=== PATIENT | female | born 1945 | race Caucasian/White ===

== ENCOUNTER 2021-05-09 21:04 | Emergency (ER) | payer MEDICARE, BC ==
[~2021-05-09] VITALS: Ht 165.1 cm; Wt 73.0 kg
[2021-05-09 22:05] VITALS: BP 139/77
[2021-05-09] MEDS ORDERED: DIPH,PERTUSS(ACELL),TET VAC/PF 0.5 ML SYRINGE. VAX IM ONE (22:15)
--- NOTE | 2021-05-09 22:53 | PHYS DOC ---
Past Medical History Past Surgical History: Hysterectomy Smoking Status: Never Smoker Alcohol Use: None General Adult EDM: Chief Complaint: LACERATION/AVULSION HPI: HPI: Patient is a 76 year old female who presents to the ED today to be evaluated for scalp laceration. Patient states she was walking she lost her footing and hit her head on a TV glass door which broke. Patient denies any loss of consciousness. She states she takes a baby aspirin every day. Denies any neck pain, denies any mid or low back pain. Review of Systems: Review of Systems: Constitutional: Denies fever or chills. [] Eyes: Denies change in visual acuity. [] HENT: Denies nasal congestion or sore throat. [] Respiratory: Denies cough or shortness of breath. [] Cardiovascular: Denies chest pain or edema. [] GI: Denies abdominal pain, nausea, vomiting, bloody stools or diarrhea. [] : Denies dysuria. [] Musculoskeletal: Denies back pain or joint pain. [] Integument: Reports scalp laceration Neurologic: Denies headache, focal weakness or sensory changes. [] [] Psychiatric: Denies depression or anxiety. [] Heart Score: C/O Chest Pain: N/A Risk Factors: Risk Factors: DM, Current or recent (<one month) smoker, HTN, HLP, family history of CAD, obesity. Risk Scores: Score 0 - 3: 2.5% MACE over next 6 weeks - Discharge Home Score 4 - 6: 20.3% MACE over next 6 weeks - Admit for Clinical Observation Score 7 - 10: 72.7% MACE over next 6 weeks - Early Invasive Strategies Current Medications: Current Medications Medications (Trade) Dose Ordered Sig/Cristhian Start Time Stop Time Status Last Admin Dose Admin Diphtheria/ Tetanus/Acell Pertussis (ADACEL TDap SYRINGE) 0.5 ml ONCE ONCE 05/09/21 22:15 05/09/21 22:16 DC 05/09/21 22:25 0.5 ML Allergies: Allergies: Allergies Coded Allergies Type Severity Reaction Last Updated Verified No Known Drug Allergies 05/09/21 No Physical Exam: PE: Constitutional: Well developed, well nourished, no acute distress, non-toxic appearance. [] HENT: Normocephalic, atraumatic, bilateral external ears normal, oropharynx moist, no oral exudates, nose normal. [] Eyes: PERRLA, EOMI, conjunctiva normal, no discharge. [] Neck: Normal range of motion, no tenderness, supple, no stridor. [] Cardiovascular:Heart rate regular rhythm, no murmur [] Lungs & Thorax: Bilateral breath sounds clear to auscultation [] Abdomen: Bowel sounds normal, soft, no tenderness, no masses, no pulsatile masses. [] Skin: Right parietal scalp with a hematoma and a laceration approximately 1.5 cm long. Bleeding is controlled. Back: No tenderness, no CVA tenderness. [] Extremities: No tenderness, no cyanosis, no clubbing, ROM intact, no edema. [] Neurologic: Alert and oriented X 3, normal motor function, normal sensory function, no focal deficits noted. Cranial nerves II through XII intact Psychologic: Affect normal, judgement normal, mood normal. [] Current Patient Data: Vital Signs: Vital Signs Date Time Temp Pulse Resp B/P (MAP) Pulse Ox O2 Delivery O2 Flow Rate FiO2 05/09/21 22:05 98.1 74 16 139/77 98 Room Air 98.1 EKG: EKG: [] Radiology/Procedures: Radiology/Procedures: Laceration/Wound Repair Wound Location: Right parietal scalp Wound's Depth, Shape: Vertical Wound Length (cm): Approximately 1.5 cm Wound Explored: clean Irrigated w/ Saline (ccs): 10 Wound Repaired With: 3 edith PROCEDURE: CT HEAD WO CONTRAST Exam: CT head INDICATION: Hit glass door, head laceration TECHNIQUE: Sequential axial images through the head were obtained without the administration of IV contrast. Exposure: One or more of the following in the visualized dose reduction techniques were utilized for this examination: 1. Automated exposure control 2. Adjustment of the MA and/or KV according to patient size 3. Use of iterative of reconstructive technique Comparisons: None FINDINGS: No focal parenchymal lesion or hemorrhage is identified. There is no midline shift or sulcal effacement. Patchy evidence in periventricular white matter. No acute vascular territory infarction is identified. Lemon-white distinction is preserved. The ventricular system is within normal limits without compression hydrocephalus. The basal cisterns are well maintained. Extra cranial soft tissue scalp contusion overlying the left posterior parietal region, and the right frontal region. The visualized portions of the paranasal sinuses and mastoid air cells are well-pneumatized. No acute fractures. IMPRESSION: Extra renal soft tissue scalp contusion/hematoma in the right frontal region in the left occipital region without underlying osseous or intracranial abnormality. Electronically signed by: Fabiana Almonte MD (05/09/2021 10:53 PM) [facility] DICTATED and SIGNED BY: FABIANA ALMONTE MD DATE: 05/09/21 [id number] 0 Course & Med Decision Making: Course & Med Decision Making Pertinent Labs and Imaging studies reviewed. (See chart for details) This is a 76-year-old female patient presenting to the ED today with scalp laceration after falling. No loss of consciousness. Laceration was repaired by me as noted in procedures. Tetanus was updated. Wound care instructions and return precautions provided. CT of the head noted for scalp hematoma otherwise no acute findings. Dragon Disclaimer: Dragon Disclaimer: This electronic medical record was generated, in whole or in part, using a voice recognition dictation system. Departure Departure Impression: Primary Impression: Scalp laceration Qualified Codes: S01.01XA - Laceration without foreign body of scalp, initial encounter Additional Impression: Fall from standing Qualified Codes: W19.XXXA - Unspecified fall, initial encounter Disposition: HOME / SELF CARE / HOMELESS Condition: STABLE Referrals: ALINA BURGER MD (PCP) Follow-up in 7 to 10 days for edith to be removed Patient Instructions: Facial or Scalp Contusion, Laceration Care, Adult Additional Instructions: You were evaluated in the emergency room for scalp laceration that was closed with 3 edith. You can shower and wash your head once a day. Please follow-up with your primary care doctor or the emergency room in 7 to 10 days for edith to be removed. KAREN AUSTIN SANITOR May 09, 2021 22:53
--- NOTE | 2021-05-09 22:55 | RAD ---
Exam: CT head INDICATION: Hit glass door, head laceration TECHNIQUE: Sequential axial images through the head were obtained without the administration of IV co ntrast. Exposure: One or more of the following in the visualized dose reduction techniques were utilized for this examination: 1. Automated exposure control 2. Adjustment of the MA and/or KV according to patient size 3. Use of iterative of reconstructive technique Comparisons: None FINDINGS: No focal parenchymal lesion or hemorrhage is identified. There is no midline shift or sulcal effaceme nt. Patchy evidence in periventricular white matter. No acute vascular territory infarction is identified . Lemon-white distinction is preserved. The ventricular system is within normal limits without compression hydrocephalus. The basal cisterns are well maintained. Extra cranial soft tissue scalp contusion overlying the left posterior parietal region, and the right frontal region. The visualized portions of the paranasal sinuses and mastoid air cells are well-pneu matized. No acute fractures. IMPRESSION: Extra renal soft tissue scalp contusion/hematoma in the right frontal region in the left occipital re gion without underlying osseous or intracranial abnormality. Electronically signed by: Fabiana Page MD (05/09/2021 10:53 PM) [facility]
== END 2021-05-09 23:06 | disposition home or self-care (01) ==
LOC: ER 21:04
DX: S01.01XA Laceration without foreign body of scalp, initial encounter (principal); W22.8XXA Striking against or struck by other objects, initial encounter; Y93.01 Activity, walking, marching and hiking; Y92.89 Other specified places as the place of occurrence of the external cause; Y99.8 Other external cause status
CPT/HCPCS: 70450; 90471; 90715; 99284-25

== ENCOUNTER 2021-05-17 13:51 | Emergency (ER) | payer MEDICARE, BC ==
[~2021-05-17] VITALS: Ht 157.5 cm; Wt 43.3 kg
--- NOTE | 2021-05-17 14:44 | PHYS DOC ---
Past Medical History Past Medical History: Diabetes-Type II, Hypertension Past Surgical History: Hysterectomy Smoking Status: Never Smoker Alcohol Use: None Drug Use: None General Adult EDM: Chief Complaint: SUTURE/STAPLE REMOVAL HPI: HPI: Patient is a 76-year-old female presents with report of history of fall 8 days ago striking the top of her head requiring staple repair of scalp. Patient reports she has 3 tobi that need to be removed. Denies any further headache. Denies other complaint. Review of Systems: Review of Systems: Constitutional: Denies fever or chills Eyes: Denies redness or eye pain HENT: Denies nasal congestion or sore throat Respiratory: Denies cough or shortness of breath Cardiovascular: Denies chest pain or palpitations GI: Denies abdominal pain, nausea, or vomiting : Denies dysuria or hematuria Musculoskeletal: Denies back pain or joint pain Integument: Denies erythema; reports scalp laceration status post staple repair from 05/09/2021 Neurologic: Denies headache, focal weakness or sensory changes Complete systems were reviewed and found to be within normal limits, except as documented in this note. Heart Score: C/O Chest Pain: N/A Allergies: Allergies: Allergies Coded Allergies Type Severity Reaction Last Updated Verified No Known Drug Allergies 05/09/21 No Physical Exam: PE: Constitutional: Well developed, well nourished, no acute distress, non-toxic appearance HENT: Normocephalic, 3 tobi noted to crown of scalp, some small eschar noted, laceration appears to be well-healing, no surrounding erythema, no exudate Eyes: Conjunctiva normal, no discharge Neck: Normal range of motion, supple Lungs & Thorax: No respiratory distress, equal chest rise and fall Skin: Warm, dry, no erythema, no rash, healed scalp laceration as above Extremities: No deformity, ROM intact Neurologic: Alert and oriented X 3, no focal deficits noted Psychologic: Affect normal, judgment normal EKG: EKG: [] Radiology/Procedures: Radiology/Procedures: [] Course & Med Decision Making: Course & Med Decision Making Patient status post head trauma with repaired scalp laceration presents for staple removal. Wound appears to be well-healing and without signs of infection. Tobi successfully removed. Patient stable for discharge with outpatient follow-up with PCP. Discussed findings and plan with patient, who acknowledges understanding and agreement. Dragon Disclaimer: Radha Disclaimer: This electronic medical record was generated, in whole or in part, using a voice recognition dictation system. Additional Procedures Progress Staple removal Verbal consent obtained. Time out performed. Hand hygiene utilized. 3 tobi successfully removed from scalp using staple removal tool. Patient tolerated procedure well and without difficulty. Departure Departure Impression: Primary Impression: Encounter for staple removal Disposition: HOME / SELF CARE / HOMELESS Condition: STABLE Referrals: ALINA BURGER MD (PCP) Patient Instructions: Staple Removal, Care After ANTON CHAWLA DO May 17, 2021 14:44
[2021-05-17 14:50] VITALS: BP 140/73
== END 2021-05-17 14:55 | disposition home or self-care (01) ==
LOC: ER 13:51
DX: S01.01XD Laceration without foreign body of scalp, subsequent encounter (principal); E11.9 Type 2 diabetes mellitus without complications; I10 Essential (primary) hypertension; X58.XXXD Exposure to other specified factors, subsequent encounter
CPT/HCPCS: 99281

== ENCOUNTER 2021-10-01 10:04 | Emergency (ER) | payer MEDICARE, BC ==
[~2021-10-01] VITALS: Ht 160 cm; Wt 76.9 kg
[2021-10-01] MEDS ORDERED: OXYMETAZOLINE 0.05% NASAL SPRAY 30ML BOTTLE. NS ONE (10:30)
--- NOTE | 2021-10-01 10:33 | PHYS DOC ---
Past Medical History Past Medical History: Diabetes-Type II, Hypertension Past Surgical History: Hysterectomy Smoking Status: Never Smoker Alcohol Use: None Drug Use: None General Adult EDM: Chief Complaint: NOSEBLEED HPI: HPI: Patient is a 76-year-old female who presents to the emergency department for a nosebleed that started yesterday afternoon. Patient reports that the pain bleeding started after she picked her nose and it has been intermittent. Patient has no complaints other than the nosebleed. She is not on any blood thinners. Review of Systems: Review of Systems: Constitutional: negative unless reported in HPI Eyes: negative unless reported in HPI HENT: negative unless reported in HPI Respiratory: negative unless reported in HPI Cardiovascular: negative unless reported in HPI GI: negative unless reported in HPI : negative unless reported in HPI Musculoskeletal: negative unless reported in HPI Integument: negative unless reported in HPI Neurologic: negative unless reported in HPI Endocrine: negative unless reported in HPI Lymphatic: negative unless reported in HPI Psychiatric: negative unless reported in HPI Heart Score: C/O Chest Pain: N/A Risk Factors: Risk Factors: DM, Current or recent (<one month) smoker, HTN, HLP, family history of CAD, obesity. Risk Scores: Score 0 - 3: 2.5% MACE over next 6 weeks - Discharge Home Score 4 - 6: 20.3% MACE over next 6 weeks - Admit for Clinical Observation Score 7 - 10: 72.7% MACE over next 6 weeks - Early Invasive Strategies Allergies: Allergies: Allergies Coded Allergies Type Severity Reaction Last Updated Verified No Known Drug Allergies 05/09/21 No Physical Exam: PE: Constitutional: Well developed, well nourished, no acute distress, non-toxic appearance. [] HENT: Normocephalic, atraumatic, bilateral external ears normal, oropharynx moist, no oral exudates, active bleeding noted from right nare Eyes: PERRL, EOMI, conjunctiva normal, no discharge. [] Neck: Normal range of motion, no tenderness, supple, no stridor. [] Cardiovascular:Heart rate regular rhythm, no murmur [] Lungs & Thorax: Bilateral breath sounds clear to auscultation [] Abdomen: Bowel sounds normal, soft, no tenderness, no masses, no pulsatile masses. [] Skin: Warm, dry, no erythema, no rash. [] Back: Normal range of motion Extremities: No tenderness, no cyanosis, no clubbing, ROM intact, no edema. [] Neurologic: Alert and oriented X 3, normal motor function, normal sensory function, no focal deficits noted. [] Psychologic: Affect normal, judgement normal, mood normal. [] EKG: EKG: [] Radiology/Procedures: Radiology/Procedures: [] Course & Med Decision Making: Course & Med Decision Making Pertinent Labs and Imaging studies reviewed. (See chart for details) [] Patient presents to the emergency department for a nosebleed. Pressure was applied. The bleeding is continued in the right nare. Afrin ordered and pressure applied. Following procedure, bleeding is controlled. Patient states that she does not feel any posterior bleeding down the back of her throat.Patient ambulated and the bleeding did not restart. Patient discharged with afrin. Educated on how to care for nosebleeds in future. I discussed with patient all findings as well as the need to follow-up with PCP for further evaluation and treatment or return to the ER if any new or worsening symptoms. Strict return precautions were also discussed at length. Patient voiced understanding and agreement with the plan. Patient is hemodynamically stable at the time of disposition. Dragon Disclaimer: Fast Asset Disclaimer: This electronic medical record was generated, in whole or in part, using a voice recognition dictation system. Departure Departure Impression: Primary Impression: Epistaxis Disposition: HOME / SELF CARE / HOMELESS Condition: GOOD Referrals: ALINA BURGER MD (PCP) Patient Instructions: Nosebleed Additional Instructions: You were seen for a nosebleed. You should blow your nose and hold pressure on the lower part of your nose if you develop a nosebleed again. Continue this for 20 minutes or until the bleeding stops. Do not remove the pressure to look for this time as your nose will start bleeding again. Your bleeding is most likely due to irritation and/or trauma. Avoid picking your nose or putting anything in your nose when you go home. The allergy medication we are starting should help with this and you need to avoid putting anything in your nose in the future, you will not need to use this medication unless your bleeding starts again. Scripts Oxymetazoline Hcl (AFRIN) 30 Ml [place] 30 ML NS 1-2XD for 7 Days, #1 SPRAY 0 Refills Prov: SUNDAY KENDALL APRN 10/01/21 KENDALL APRN Oct 01, 2021 10:33
[2021-10-01] MEDS ORDERED: OXYM30SP25 NS (12:12)
[2021-10-01 12:18] VITALS: BP 150/64
== END 2021-10-01 12:36 | disposition home or self-care (01) ==
LOC: ER 10:04
DX: R04.0 Epistaxis (principal); E11.9 Type 2 diabetes mellitus without complications; I10 Essential (primary) hypertension
CPT/HCPCS: 99282